=== PATIENT | male | born 1955 | race American Indian/Alaskan Native ===

== ENCOUNTER 2016-12-11 10:08 | Emergency (ER) | payer BC ==
[2016-12-11 11:04] LABS: Bilirubin,Urine NEG (Negative); Blood,Urine NEG (Negative); Ketones,Urine NEG (Negative); Leukocyte Esterase,Urine NEG (Negative); Nitrite,Urine NEG (Negative); Protein,Urine <15 mg/dL mg/dL (Negative); Urobilinogen,Urine < 2.0 mg/dL (<2.0); WBC,Urine < 1.0 /HPF (0.0-6.0)
[2016-12-11 11:12] LABS: Eosinophils % (Auto) 2.8 % (0.0-4.3); Hematocrit 42.4 % (35.5-45.6); Hemoglobin 14.1 gm/dl (11.8-15.2); Mean Corpuscular HGB Conc 33 % (32-34); Mean Corpuscular Hemoglobin 29 pg (28-32); Mean Corpuscular Volume 86 fl (84-94); Platelet Count 197 K/mm3 (140-440); Red Blood Count 4.94 M/mm3 (3.65-5.03); Red Cell Distribution Width 13.4 % (13.2-15.2); White Blood Count 3.4 K/mm3 (4.5-11.0)
[2016-12-11 11:27] LABS: Anion Gap 19 mmol/L; Blood Urea Nitrogen 9 mg/dL (9-20); Calcium 9.4 mg/dL (8.4-10.2); Carbon Dioxide 26 mmol/L (22-30); Glucose 102 mg/dL (75-100); Potassium 4.5 mmol/L (3.6-5.0); Sodium 143 mmol/L (137-145)
--- NOTE | 2016-12-11 12:21 | Emergency Department Report ---
ED Palpitations HPI - General Chief Complaint: Arrhythmia/Palpitations Stated Complaint: HTN/HEART RACING Time Seen by Provider: 12/11/16 11:19 Source: patient, EMS, old records reviewed Mode of arrival: Stretcher Limitations: No Limitations - History of Present Illness Initial Comments: 61-year-old male with a past medical history diabetes, hypertension, and elevated cholesterol presents to the hospital complaining of sudden onset of palpitations. Patient states he woke up, ate breakfast, and while watching good morning [place] he suddenly felt his heart racing. Patient had associated mild lightheadedness but denies chest pain, shortness of breath, nausea, vomiting, or diaphoresis. EMS documentation of heart rate was 122 with BP of 220 /118 upon their arrival. Patient's heart rate then spontaneously improved to 98 in route. Upon arrival patient's heart rate was 86 and is asymptomatic. EMS rhythm/EKG not available for review. Patient took his a.m. medications as scheduled. Similar episode reported one year ago. No previous cardiac workup reported. Patient does have a primary care doctor - Related Data Home Medications Medication Instructions Recorded Confirmed Last Taken Lisinopril [Zestril TAB] 40 mg PO QDAY 08/29/15 12/11/16 11/27/15 Doxazosin [Cardura] 4 mg PO QDAY 11/27/15 12/11/16 11/27/15 Metformin HCl [Glucophage] 1,000 mg PO BID 11/27/15 12/11/16 11/27/15 Simvastatin [Zocor TAB] 40 mg PO QHS 11/27/15 12/11/16 11/26/15 Allergies Allergy/AdvReac Type Severity Reaction Status Date / Time No Known Allergies Allergy Unverified 08/29/15 10:23 ED Review of Systems ROS: Stated complaint: HTN/HEART RACING Other details as noted in HPI Comment: All other systems reviewed and negative Other: Constitutional: No fevers chills Eyes: No eye pain visual changes ENT: No ear pain or throat pain Neck: Denies pain Respiratory: Denies cough wheezing shortness of breath Cardiovascular: Denies chest pain, syncope GI: Denies abdominal pain, nausea, vomiting, diarrhea : Denies dysuria, urinary frequency, or urgency Musculoskeletal: Denies back pain, joint swelling Skin: Denies rash, lesions, erythema Neurologic: Denies headache, numbness, weakness Psychiatric: Denies suicidal ideation, hallucinations ED Past Medical Hx - Past Medical History Previous Medical History?: Yes Hx Hypertension: Yes Hx Diabetes: Yes - Surgical History Past Surgical History?: No - Social History Smoking Status: Former Smoker Substance Use Type: Alcohol - Medications Home Medications: Home Medications Medication Instructions Recorded Confirmed Last Taken Type Lisinopril [Zestril TAB] 40 mg PO QDAY 08/29/15 12/11/16 11/27/15 History Doxazosin [Cardura] 4 mg PO QDAY 11/27/15 12/11/16 11/27/15 History Metformin HCl [Glucophage] 1,000 mg PO BID 11/27/15 12/11/16 11/27/15 History Simvastatin [Zocor TAB] 40 mg PO QHS 11/27/15 12/11/16 11/26/15 History ED Physical Exam - General Limitations: No Limitations - Other Other exam information: General: No limitations, patient is alert in no acute distress Head exam: Atraumatic, normocephalic Eyes exam: Normal appearance ENT: Moist mucous membrane, normal oropharynx Neck exam: Normal inspection, full range of motion, no meningismus nontender Respiratory exam: Clear to auscultation bilateral, no wheezes, rales, crackles Cardiovascular: Normal rate and rhythm, normal heart sounds Abdomen: Soft, nondistended, and nontender, with normal bowel sounds, no rebound, or guarding Extremity: Full range of motion normal inspection no deformity, no calf tenderness or edema Back: Normal Inspection, full range of motion, no tenderness Neurologic: Alert, oriented x3, cranial nerves intact, no motor or sensory deficit Psychiatric: normal affect, normal mood Skin: Warm, dry, intact ED Course Vital Signs 12/11/16 12/11/16 10:35 11:04 Temperature 98.5 F Pulse Rate 85 86 Respiratory 21 14 Rate Blood Pressure 168/94 Blood Pressure 162/88 [Left] O2 Sat by Pulse 100 98 Oximetry - Reevaluation(s) Reevaluation #1: 12/11/16 12:21 Patient asymptomatic during ED stay and heart rate in sinus rhythm - Consultations Consultation #1: 12/11/16 12:[address] Upton intensive care medicine specialist recommended outpatient follow-up ED Medical Decision Making - Lab Data Result diagrams: 12/11/16 10:56 12/11/16 10:56 Lab Results 12/11/16 12/11/16 12/11/16 Range/Units 10:45 10:56 10:56 WBC 3.4 L (4.5-11.0) K/mm3 RBC 4.94 (3.65-5.03) M/mm3 Hgb 14.1 (11.8-15.2) gm/dl Hct 42.4 (35.5-45.6) % MCV 86 (84-94) fl MCH 29 (28-32) pg MCHC 33 (32-34) % RDW 13.4 (13.2-15.2) % Plt Count 197 (140-440) K/mm3 Lymph % (Auto) 43.2 H (13.4-35.0) % Antelope % (Auto) 11.5 H (0.0-7.3) % Eos % (Auto) 2.8 (0.0-4.3) % Baso % (Auto) 1.0 (0.0-1.8) % Lymph # 1.5 (1.2-5.4) K/mm3 [place]elope # 0.4 (0.0-0.8) K/mm3 Eos # 0.1 (0.0-0.4) K/mm3 Baso # 0.0 (0.0-0.1) K/mm3 Seg Neutrophils % 41.5 (40.0-70.0) % Seg Neutrophils # 1.4 L (1.8-7.7) K/mm3 Sodium 143 (137-145) mmol/L Potassium 4.5 (3.6-5.0) mmol/L Chloride 103.0 (98-107) mmol/L Carbon Dioxide 26 (22-30) mmol/L Anion Gap 19 mmol/L BUN 9 (9-20) mg/dL Creatinine 1.0 (0.8-1.5) mg/dL Estimated GFR > 60 ml/min BUN/Creatinine Ratio 9.00 % Glucose 102 H (75-100) mg/dL Calcium 9.4 (8.4-10.2) mg/dL Troponin T < 0.010 (0.00-0.029) ng/mL Urine Color Straw (Yellow) Urine Turbidity Clear (Clear) Urine pH 6.0 (5.0-7.0) Ur Specific [place] 1.004 (1.003-1.030) Urine Protein <15 mg/dl (Negative) mg/dL Urine Glucose (UA) 150 (Negative) mg/dL Urine Ketones Neg (Negative) mg/dL Urine Blood Neg (Negative) Urine Nitrite Neg (Negative) Urine Bilirubin Neg (Negative) Urine Urobilinogen < 2.0 (<2.0) mg/dL Ur Leukocyte Esterase Neg (Negative) Urine WBC (Auto) < 1.0 (0.0-6.0) /HPF Urine RBC (Auto) 3.0 (0.0-6.0) /HPF Urine Opiates Screen Urine Methadone Screen Ur Barbiturates Screen Ur Phencyclidine Scrn Ur Amphetamines Screen U Benzodiazepines Scrn Urine Cocaine Screen 12/11/16 Range/Units 12:18 WBC (4.5-11.0) K/mm3 RBC (3.65-5.03) M/mm3 Hgb (11.8-15.2) gm/dl Hct (35.5-45.6) % MCV (84-94) fl MCH (28-32) pg MCHC (32-34) % RDW (13.2-15.2) % Plt Count (140-440) K/mm3 Lymph % (Auto) (13.4-35.0) % [place] % (Auto) (0.0-7.3) % Eos % (Auto) (0.0-4.3) % Baso % (Auto) (0.0-1.8) % Lymph # (1.2-5.4) K/mm3 [place] # (0.0-0.8) K/mm3 Eos # (0.0-0.4) K/mm3 Baso # (0.0-0.1) K/mm3 Seg Neutrophils % (40.0-70.0) % Seg Neutrophils # (1.8-7.7) K/mm3 Sodium (137-145) mmol/L Potassium (3.6-5.0) mmol/L Chloride (98-107) mmol/L Carbon Dioxide (22-30) mmol/L Anion Gap mmol/L BUN (9-20) mg/dL Creatinine (0.8-1.5) mg/dL Estimated GFR ml/min BUN/Creatinine Ratio % Glucose (75-100) mg/dL Calcium (8.4-10.2) mg/dL Troponin T (0.00-0.029) ng/mL Urine Color (Yellow) Urine Turbidity (Clear) Urine pH (5.0-7.0) Ur Specific [place] (1.003-1.030) Urine Protein (Negative) mg/dL Urine Glucose (UA) (Negative) mg/dL Urine Ketones (Negative) mg/dL Urine Blood (Negative) Urine Nitrite (Negative) Urine Bilirubin (Negative) Urine Urobilinogen (<2.0) mg/dL Ur Leukocyte Esterase (Negative) Urine WBC (Auto) (0.0-6.0) /HPF Urine RBC (Auto) (0.0-6.0) /HPF Urine Opiates Screen Presumptive negative Urine Methadone Screen Presumptive negative Ur Barbiturates Screen Presumptive negative Ur Phencyclidine Scrn Presumptive negative Ur Amphetamines Screen Presumptive negative U Benzodiazepines Scrn Presumptive negative Urine Cocaine Screen Presumptive negative thc pending - EKG Data -: EKG Interpreted by Me (sinus rate 73 with left atrial enlargement no ST elevation [place]) - EKG Data When compared to previous EKG there are: previous EKG unavailable - Medical Decision Making Plan to discharge patient home with outpatient cardiology follow-up. Outpatient follow-up and workup with failed primary care doctor and cardiology will be encouraged - Differential Diagnosis arrhythmia, anxiety, electrolyte abnormality, drug use Critical Care Time: No Critical care attestation.: If time is entered above; I have spent that time in minutes in the direct care of this critically ill patient, excluding procedure time. ED Disposition Clinical Impression: Heart palpitations Disposition: DC-01 TO HOME OR SELFCARE Is pt being admited?: No Does the pt Need Aspirin: No Condition: Stable Instructions: Palpitations (ED) Additional Instructions: Follow-up with the intensive care medicine specialist for further heart evaluation and possible Holter monitor placement. Return if symptoms worsen. Referrals: PRIMARY CAREMD [Primary Care Provider] - 3-5 Days JARRED SIMON MD [Staff Physician] - 2-3 Days (intensive care medicine specialist) Time of Disposition: 13:03
[2016-12-11] MEDS ORDERED: ASPIRIN PO ONE (12:23)
[2016-12-11 12:29] LABS: Urine Drugs of Abuse Note Disclamer
[2016-12-11 13:40] VITALS: BP 148/77
== END 2016-12-11 13:40 | disposition home or self-care (01) ==
LOC: ED 10:08
DX: R00.2 Palpitations (principal); I10 Essential (primary) hypertension; E11.9 Type 2 diabetes mellitus without complications; Z87.891 Personal history of nicotine dependence
CPT/HCPCS: 36415; 80048; 80307; 81001; 84484; 85025; 93005; 93010

== ENCOUNTER 2017-01-24 23:45 | Emergency (ER) | payer BC ==
[2017-01-25 00:30] LABS: Basophils % (Auto) 0.9 % (0.0-1.8); Eosinophils % (Auto) 5.7 % (0.0-4.3); Hematocrit 40.2 % (35.5-45.6); Hemoglobin 13.1 gm/dl (11.8-15.2); Mean Corpuscular HGB Conc 33 % (32-34); Mean Corpuscular Hemoglobin 28 pg (28-32); Mean Corpuscular Volume 86 fl (84-94); Platelet Count 212 K/mm3 (140-440); Red Blood Count 4.69 M/mm3 (3.65-5.03); Red Cell Distribution Width 13.6 % (13.2-15.2); White Blood Count 4.6 K/mm3 (4.5-11.0)
[2017-01-25 00:40] LABS: Anion Gap 22 mmol/L; Blood Urea Nitrogen 11 mg/dL (9-20); Calcium 9.2 mg/dL (8.4-10.2); Carbon Dioxide 21 mmol/L (22-30); Chloride 99.5 mmol/L (98-107); Glucose 219 mg/dL (75-100); Potassium 3.8 mmol/L (3.6-5.0); Sodium 139 mmol/L (137-145)
[2017-01-25 03:56] VITALS: BP 133/77
== END 2017-01-25 05:14 | disposition left against medical advice (07) ==
LOC: ED 23:45
DX: I10 Essential (primary) hypertension (principal); Z53.21 Procedure and treatment not carried out due to patient leaving prior to being seen by health care provider
CPT/HCPCS: 36415; 80048; 84484; 85025; 93005; 93010

== ENCOUNTER 2018-06-21 22:45 | Emergency (ER) | payer BC ==
[2018-06-21 23:34] VITALS: BP 156/94
[2018-06-21] MEDS ORDERED: NORCO 5/325 PO ONE (23:42)
[2018-06-21] MEDS ORDERED: NORCO 5/325 ONE (23:42)
[2018-06-22] MEDS ORDERED: NACL 0.9% 1000 ML 1,000 ML IV ONE (00:21)
[2018-06-22] MEDS ORDERED: ZOFRAN IV ONE (00:21)
--- NOTE | 2018-06-22 00:26 | Emergency Department Report ---
ED Male HPI - General Chief complaint: Urogenital-Male Stated complaint: PAINFUL URINATION SENSATION Time Seen by Provider: 06/22/18 00:17 Source: patient Mode of arrival: Ambulatory Limitations: No Limitations - History of Present Illness Initial comments: Mr. Smith is 63 yo male with hx of BPH, HTN, NIDDM, dyslipidemia who presents with severe discomfort and urinary retention. Unable to urination for 3 hours. Sudden onset of symptoms. Takes Doxazosin. Complaint: other (urinary retention) -: Sudden, hour(s) (3) Location: abdomen (suprapubic region) Radiation: none Severity: severe Severity scale (0 -10): 10 Quality: aching Consistency: constant Improves with: none Worsens with: none urinary retention - Related Data Home Medications Medication Instructions Recorded Confirmed Last Taken Lisinopril [Zestril TAB] 40 mg PO QDAY 08/29/15 12/11/16 11/27/15 Doxazosin [Cardura] 4 mg PO QDAY 11/27/15 12/11/16 11/27/15 Metformin HCl [Glucophage] 1,000 mg PO BID 11/27/15 12/11/16 11/27/15 Simvastatin [Zocor TAB] 40 mg PO QHS 11/27/15 12/11/16 11/26/15 Previous Rx's Medication Instructions Recorded Last Taken Type Cephalexin [Keflex] 500 mg PO QID 10 Days #40 capsule 06/22/18 Unknown Rx Allergies Allergy/AdvReac Type Severity Reaction Status Date / Time No Known Allergies Allergy Unverified 08/29/15 10:23 ED Review of Systems ROS: Stated complaint: PAINFUL URINATION SENSATION Other details as noted in HPI Comment: All other systems reviewed and negative Constitutional: denies: fever, malaise Respiratory: denies: cough Cardiovascular: denies: chest pain ED Past Medical Hx - Past Medical History Previous Medical History?: Yes Hx Hypertension: Yes Hx Diabetes: Yes - Social History Smoking Status: Never Smoker Substance Use Type: None - Medications Home Medications: Home Medications Medication Instructions Recorded Confirmed Last Taken Type Lisinopril [Zestril TAB] 40 mg PO QDAY 08/29/15 12/11/16 11/27/15 History Doxazosin [Cardura] 4 mg PO QDAY 11/27/15 12/11/16 11/27/15 History Metformin HCl [Glucophage] 1,000 mg PO BID 11/27/15 12/11/16 11/27/15 History Simvastatin [Zocor TAB] 40 mg PO QHS 11/27/15 12/11/16 11/26/15 History Cephalexin [Keflex] 500 mg PO QID 10 Days #40 capsule 06/22/18 Unknown Rx ED Physical Exam - General Limitations: No Limitations General appearance: alert, other (appears in severe discomfort, unable to stay still) - Head Head exam: Present: atraumatic, normocephalic - Eye Eye exam: Present: normal appearance - ENT ENT exam: Present: mucous membranes moist - Neck Neck exam: Present: normal inspection, full ROM. Absent: tenderness, meningismus - Respiratory Respiratory exam: Present: normal lung sounds bilaterally. Absent: respiratory distress, wheezes, rales, rhonchi - Cardiovascular Cardiovascular Exam: Present: normal rhythm, tachycardia, normal heart sounds. Absent: systolic murmur, diastolic murmur, rubs, gallop - GI/Abdominal GI/Abdominal exam: Present: soft, distended, tenderness, guarding, other (tense distended bladder on palpation in the suprapubic region). Absent: rebound - Rectal Rectal exam: Present: deferred - Extremities Exam Extremities exam: Present: normal inspection - Back Exam Back exam: Present: normal inspection - Neurological Exam Neurological exam: Present: alert, oriented X3 - Psychiatric Psychiatric exam: Present: normal affect, normal mood - Skin Skin exam: Present: warm, dry, intact, normal color. Absent: rash ED Course Vital Signs 06/21/18 06/21/18 23:31 23:50 Temperature 98.7 F Pulse Rate 116 H Respiratory 18 20 Rate Blood Pressure 156/94 O2 Sat by Pulse 99 Oximetry ED Medical Decision Making - Lab Data Result diagrams: 06/22/18 00:29 06/22/18 00:29 Laboratory Results - last 24 hr 06/22/18 06/22/18 06/22/18 00:29 00:29 00:31 WBC 10.7 RBC 4.33 Hgb 12.2 Hct 36.7 MCV 85 MCH 28 MCHC 33 RDW 14.1 Plt Count 177 Lymph % (Auto) 8.0 L [place] % (Auto) 9.0 H Eos % (Auto) 0.1 Baso % (Auto) 0.6 Lymph # 0.9 L [place] # 1.0 H Eos # 0.0 Baso # 0.1 Seg Neutrophils % 82.3 H Seg Neutrophils # 8.8 H Sodium 134 L Potassium 3.5 L Chloride 98.1 Carbon Dioxide 21 L Anion Gap 18 BUN 10 Creatinine 1.0 Estimated GFR > 60 BUN/Creatinine Ratio 10 Glucose 146 H Calcium 9.0 Urine Color Yellow Urine Turbidity Slightly-cloudy Urine pH 5.0 Ur Specific [place] 1.006 Urine Protein 30 mg/dl Urine Glucose (UA) Neg Urine Ketones Neg Urine Blood Lg Urine Nitrite Neg Urine Bilirubin Neg Urine Urobilinogen < 2.0 Ur Leukocyte Esterase Lg Urine WBC (Auto) 68.0 H Urine RBC (Auto) 49.0 Urine Bacteria (Auto) 1+ Urine WBC Clumps 3+ Urine Mucus Few - Medical Decision Making Urinary retention due to BPH: Orozco inserted with immediate relief. Intravenous fluid provided in anticipation of postobstructive diuresis. CBC chemistry within normal limits. Urinalysis contained copious amount of white cells with 1+ bacteria, consideration prostatitis versus cystitis Mr. Smith will be sent home with Orozco catheter in place and leg bag. He will continue doxazosin. Referred to urologist. Given extensive verbal and written education. Also prescribed cephalexin. Critical care attestation.: If time is entered above; I have spent that time in minutes in the direct care of this critically ill patient, excluding procedure time. ED Disposition Clinical Impression: Acute urinary retention, Urinary tract infection Disposition: DC- TO HOME OR SELFCARE Is pt being admited?: No Does the pt Need Aspirin: No Condition: Stable Instructions: Urinary Retention in Men (ED), Orozco Catheter Placement and Care (ED), Urinary Leg Bag (GEN), Urinary Tract Infection in Men (ED) Prescriptions: Cephalexin [Keflex] 500 mg PO QID 10 Days #40 capsule Referrals: JOELLEN DAO MD [Staff Physician] - 3-5 Days
[2018-06-22 00:47] LABS: Basophils # (Auto) 0.1 K/mm3 (0.0-0.1); Basophils % (Auto) 0.6 % (0.0-1.8); Eosinophils % (Auto) 0.1 % (0.0-4.3); Hematocrit 36.7 % (35.5-45.6); Hemoglobin 12.2 gm/dl (11.8-15.2); Lymphocytes # (Auto) 0.9 K/mm3 (1.2-5.4); Mean Corpuscular HGB Conc 33 % (32-34); Mean Corpuscular Volume 85 fl (84-94); Platelet Count 177 K/mm3 (140-440); Red Blood Count 4.33 M/mm3 (3.65-5.03); Red Cell Distribution Width 14.1 % (13.2-15.2)
[2018-06-22 00:52] LABS: Bacteria,Urine 1+ /HPF (Negative); Bilirubin,Urine NEG (Negative); Blood,Urine LG (Negative); Color,Urine Yellow (Yellow); Mucus,Urine FEW /HPF; Urobilinogen,Urine < 2.0 mg/dL (<2.0)
[2018-06-22 00:58] LABS: BUN/Creatinine Ratio 10; Blood Urea Nitrogen 10 mg/dL (9-20); Hemolysis Index 0
== END 2018-06-22 01:49 | disposition home or self-care (01) ==
LOC: ED 22:45
DX: N39.0 Urinary tract infection, site not specified (principal); N40.1 Benign prostatic hyperplasia with lower urinary tract symptoms; R33.8 Other retention of urine; R10.9 Unspecified abdominal pain; E11.9 Type 2 diabetes mellitus without complications; E78.00 Pure hypercholesterolemia, unspecified
CPT/HCPCS: 36415; 51702; 80048; 81001; 85025; 87076; 87086; 87186; 96374; 99283; J2405; J7030